=== PATIENT | female | born 1995 | race Caucasian/White ===

== ENCOUNTER 2019-07-31 16:24 | Emergency (ER) | payer BC, MEDICAID ==
--- NOTE | 2019-07-31 16:52 | EDM.PDOC ---
ED HPI GENERAL MEDICAL PROBLEM - General Chief Complaint: Genitourinary Problem Stated Complaint: possible bladder infection Time Seen by Provider: 07/31/19 16:31 Source of Information: Reports: Patient History Limitations: Reports: No Limitations - History of Present Illness INITIAL COMMENTS - FREE TEXT/NARRATIVE: Since reporting a 2 day history of frequency, urgency of urination. No fever, nausea or vaginal symptoms. Last menstrual period 07/23/2019. Sexually active on Depo-Provera. Type I diabetic on insulin pump. Sugars running in the 200s, previous to this in the 100s although she states her control is not ideal and often runs in the 200s. Bilateral Flank Pain Score (Numeric/FACES): 8 - Related Data Allergies Allergy/AdvReac Type Severity Reaction Status Date / Time amoxicillin Allergy Hives Verified 07/31/19 16:48 azithromycin [From Zithromax] Allergy Hives Verified 07/31/19 16:48 ceftriaxone sodium Allergy Hives Verified 07/31/19 16:48 [From Rocephin] cephalexin Allergy Hives Verified 07/31/19 16:48 clarithromycin [From Biaxin] Allergy Hives Verified 07/31/19 16:49 Home Meds: Home Meds Acetaminophn/Pyril Mal/Caffein [Midol Caplet] 11/15/15 [History] QUEtiapine Fumarate [Seroquel Xr] 150 mg PO BEDTIME 11/15/15 [History] medroxyPROGESTERone [Depo-Provera Contraceptive] 150 mg IM ONETIME 11/15/15 [ History] Glucagon,Human Recombinant [Glucagon Emergency Kit] 1 mg IJ ASDIRECTED PRN #1 kit 11/18/15 [Rx] Ondansetron [Zofran ODT] 4 mg PO Q8H PRN #30 tab.dis 11/18/15 [Rx] FLUoxetine HCl [Prozac] 40 mg PO DAILY 07/31/19 [History] Nitrofurantoin Monohyd/M-Cryst [Macrobid 100 mg Capsule] 1 cap PO BID #20 capsule 07/31/19 [Rx] Nitrofurantoin Monohyd/M-Cryst [Macrobid 100 mg Capsule] 1 cap PO BID #20 capsule 07/31/19 [Rx] Past Medical History Respiratory History: Reports: Asthma Genitourinary History: Reports: UTI, Recurrent - Infectious Disease History Infectious Disease History: Reports: Chicken Pox, Influenza - Past Surgical History HEENT Surgical History: Reports: Tonsillectomy Respiratory Surgical History: Reports: None Female Surgical History: Reports: None Social & Family History - Family History HEENT: Reports: Impaired Vision Cardiac: Reports: Hypertension Respiratory: Reports: Asthma Psychiatric: Reports: Anxiety, Depression Endocrine/Metabolic: Reports: Diabetes, Type I Oncologic: Reports: Lymphoma ED ROS GENERAL - Review of Systems Review Of Systems: Comprehensive ROS is negative, except as noted in HPI. ED EXAM, RENAL/ - Physical Exam Exam: See Below Exam Limited By: No Limitations General Appearance: Alert, No Apparent Distress Ears: Normal External Exam Nose: Normal Inspection Throat/Mouth: Normal Inspection Head: Atraumatic, Normocephalic Neck: Normal Inspection Respiratory/Chest: No Respiratory Distress, Lungs Clear, Normal Breath Sounds Cardiovascular: Normal Peripheral Pulses, Regular Rate, Rhythm GI/Abdominal: Soft Back Exam: No: CVA Tenderness (L), CVA Tenderness (R) Neurological: Alert, Oriented Psychiatric: Normal Affect, Normal Mood Skin Exam: Warm, Dry, Intact, Normal Color, No Rash Lymphatic: No Adenopathy Course - Vital Signs Last Recorded V/S: Last Vital Signs Temp 37.1 C 07/31/19 16:51 Pulse 114 H 07/31/19 16:51 Resp 18 07/31/19 16:51 BP 124/83 07/31/19 16:51 Pulse Ox 95 07/31/19 16:51 - Orders/Labs/Meds Orders: Active Orders 24 hr Category Date Time Status UA RFX ALYSSA AND CULT IF INDIC [URIN] Stat Lab 07/31/19 16:47 Ordered Labs: Laboratory Tests 07/31/19 Range/Units 17:00 Urine Color YELLOW Urine Appearance SLT CLOUDY Urine pH 6.0 (5.0-8.0) Ur Specific Mosby 1.010 (1.001-1.035) Urine Protein 30 H (NEGATIVE) mg/dL Urine Glucose (UA) >=1000 (NEGATIVE) mg/dL Urine Ketones NEGATIVE (NEGATIVE) mg/dL Urine Occult Blood LARGE H (NEGATIVE) Urine Nitrite NEGATIVE (NEGATIVE) Urine Bilirubin NEGATIVE (NEGATIVE) Urine Urobilinogen 0.2 (<2.0) EU/dL Ur Leukocyte Esterase MODERATE H (NEGATIVE) Departure - Departure Time of Disposition: 17:33 Disposition: Home, Self-Care 01 Clinical Impression: UTI, Urinary tract infectious disease - Discharge Information Referrals: PCP,None [Primary Care Provider] - [facility] [Outside] [facility] [Outside] Forms: ED Department Discharge Additional Instructions: The following information is given to patients seen in the emergency department who are being discharged to home. This information is to outline your options for follow-up care. We provide all patients seen in our emergency department with a follow-up referral. The need for follow-up, as well as the timing and circumstances, are variable depending upon the specifics of your emergency department visit. If you don't have a primary care physician on staff, we will provide you with a referral. We always advise you to contact your personal physician following an emergency department visit to inform them of the circumstance of the visit and for follow-up with them and/or the need for any referrals to a consulting specialist. The emergency department will also refer you to a specialist when appropriate. This referral assures that you have the opportunity for follow-up care with a specialist. All of these measure are taken in an effort to provide you with optimal care, which includes your follow-up. Under all circumstances we always encourage you to contact your private physician who remains a resource for coordinating your care. When calling for follow-up care, please make the office aware that this follow-up is from your recent emergency room visit. If for any reason you are refused follow-up, please contact the [facility] Emergency Department at and asked to speak to the emergency department charge nurse. 1. Take your antibiotic twice daily starting as soon as you pick it up 2. Adjust your monitoring and insulin pump for tighter control--you are spilling quite a bit of glucose and your urine 3. Drink plenty of fluids 4. Follow up in primary care. Return promptly for fevers, elevated heart rate , new or worsening symptoms Sepsis Event Note - Focused Exam Vital Signs: Vital Signs Temp Pulse Resp BP Pulse Ox 07/31/19 16:51 37.1 C 114 H 18 124/83 95 Date Exam was Performed: 07/31/19 Time Exam was Performed: 17:26 - My Orders Last 24 Hours: My Active Orders 07/31/19 16:47 UA RFX ALYSSA AND CULT IF INDIC [URIN] Stat - Assessment/Plan Last 24 Hours: My Active Orders 07/31/19 16:47 UA RFX ALYSSA AND CULT IF INDIC [URIN] Stat
[2019-07-31 17:53] VITALS: BP 123/83; PULSE 104
== END 2019-07-31 17:50 | disposition home or self-care (01) ==
LOC: MW.ED 16:24
DX: N39.0 Urinary tract infection, site not specified (principal); J45.909 Unspecified asthma, uncomplicated; E10.9 Type 1 diabetes mellitus without complications; Z88.0 Allergy status to penicillin; Z88.1 Allergy status to other antibiotic agents
CPT/HCPCS: 81001; 87086; 87088; 87186; 99283

== ENCOUNTER 2019-11-04 17:27 | Emergency (ER) | payer MEDICAID ==
[2019-11-04 17:50] VITALS: BP 124/85; PULSE 104
--- NOTE | 2019-11-04 17:56 | EDM.PDOC ---
ED HPI GENERAL MEDICAL PROBLEM - General Chief Complaint: Lower Extremity Injury/Pain Stated Complaint: FOOT INJURY Time Seen by Provider: 11/04/19 17:28 Source of Information: Reports: Patient History Limitations: Reports: No Limitations - History of Present Illness INITIAL COMMENTS - FREE TEXT/NARRATIVE: HISTORY AND PHYSICAL: History of present illness: Patient is a 24-year-old female who presents to the emergency room with complaints of foot pain to the solar surface along the arch. She states a few days ago she started to notice this pain, increased with weightbearing and ambulation. She does not recall any particular injury or twisting of her foot. She has been outside walking her dog and believes maybe she "stepped wrong". Denies any previous orthopedic injuries. She has a type I diabetic, states that her blood sugars have been normal. She denies any systemic concerns or complaints at this time. Review of systems: As per history of present illness and below otherwise all systems reviewed and negative. Past medical history: As per history of present illness and as reviewed below otherwise noncontributory. Surgical history: As per history of present illness and as reviewed below otherwise noncontributory. Social history: See social history for further information Family history: As per history of present illness and as reviewed below otherwise noncontributory. Physical exam: General: Well developed and well nourished 24-year-old female. Alert and oriented. Nontoxic-appearing and in no acute distress. HEENT: Atraumatic, normocephalic, pupils equal and reactive bilaterally, negative for conjunctival pallor or scleral icterus, mucous membranes moist, TMs normal bilaterally, throat clear, neck supple, nontender, trachea midline. No drooling or trismus noted. No meningeal signs. No hot potato voice noted. Lungs: Clear to auscultation, breath sounds equal bilaterally, chest nontender. Heart: S1S2, regular rate and rhythm without overt murmur Abdomen: Soft, nondistended, nontender. Skin: Intact, warm, dry. No lesions or rashes noted. Extremities: Pain with palpation of the left arch into the distal heel. She moves all extremities per self without difficulty or deficits, negative for cords or calf pain. Strong pedal and pretibial pulse. Cap refill less than 3 seconds. Neurovascular unremarkable. Neuro: Awake, alert, oriented. Cranial nerves II through XII unremarkable. Cerebellum unremarkable. Motor and sensory unremarkable throughout. Exam nonfocal. Notes: Straight shows no acute findings. We discussed following up with podiatry. Would like her to use a Jacob wrap and crutches for compression and to be nonweightbearing over the next 3 to 5 days. I am suspecting a plantar fasciitis left foot. We discussed follow-up and supportive care measures were reviewed and discussed. Voices understanding and is agreeable to plan of care. Denies any further questions or concerns at this time. Diagnostics: X-ray Therapeutics: Jacob wrap, crutches Prescription: Diclofenac Impression: Acute foot pain, left Suspected plantar fasciitis, left Plan: 1. Rest, ice, elevate the affected extremity. Please wear the jacob wrap and use crutches over next 3-5 days. Make sure you are wearing supportive shoes with good arch support. Gentle stretching (tendoachilles/plantar fascia stretches) 3 times daily with 10 reps each stretch. 2. Tylenol and/or Ibuprofen as needed for pain management. 3. Follow up with the Rug [facility]pper or Orthopedic provider as we discussed. Return to the ED as needed and as discussed. Definitive disposition and diagnosis as appropriate pending reevaluation and review of above. left foot Pain Score (Numeric/FACES): 6 - Related Data Allergies Allergy/AdvReac Type Severity Reaction Status Date / Time amoxicillin Allergy Hives Verified 11/04/19 17:50 azithromycin [From Zithromax] Allergy Hives Verified 11/04/19 17:50 ceftriaxone sodium Allergy Hives Verified 11/04/19 17:50 [From Rocephin] cephalexin Allergy Hives Verified 11/04/19 17:50 clarithromycin [From Biaxin] Allergy Hives Verified 11/04/19 17:50 Home Meds: Home Meds Acetaminophn/Pyril Mal/Caffein [Midol Caplet] 11/15/15 [History] QUEtiapine Fumarate [Seroquel Xr] 150 mg PO BEDTIME 11/15/15 [History] Glucagon,Human Recombinant [Glucagon Emergency Kit] 1 mg IJ ASDIRECTED PRN #1 kit 11/18/15 [Rx] Ondansetron [Zofran ODT] 4 mg PO Q8H PRN #30 tab.dis 11/18/15 [Rx] FLUoxetine HCl [Prozac] 40 mg PO DAILY 07/31/19 [History] Diclofenac Sodium [Voltaren] 75 mg PO BIDMEALS PRN #30 tab.cr 11/04/19 [Rx] Insulin Glarg,Human.Rec.Analog [Lantus] 28 unit SQ DAILY 11/04/19 [History] Insuln Asp Prot/Insulin Aspart [NovoLOG Mix 70-30] 300 unit .XX DAILY 11/04/19 [ History] Zolpidem Tartrate [Ambien] 5 mg PO 11/04/19 [History] Past Medical History Respiratory History: Reports: Asthma Genitourinary History: Reports: UTI, Recurrent - Infectious Disease History Infectious Disease History: Reports: Chicken Pox, Influenza - Past Surgical History HEENT Surgical History: Reports: Tonsillectomy Respiratory Surgical History: Reports: None Female Surgical History: Reports: None Social & Family History - Family History Family Medical History: Noncontributory HEENT: Reports: Impaired Vision Cardiac: Reports: Hypertension Respiratory: Reports: Asthma Psychiatric: Reports: Anxiety, Depression Endocrine/Metabolic: Reports: Diabetes, Type I Oncologic: Reports: Lymphoma - Caffeine Use Caffeine Use: Reports: None Review of Systems - Review of Systems Review Of Systems: Comprehensive ROS is negative, except as noted in HPI. ED EXAM, GENERAL - Physical Exam Exam: See Below (See dictation) Course - Vital Signs Last Recorded V/S: Last Vital Signs Temp 96.1 F L 11/04/19 17:47 Pulse 104 H 11/04/19 17:47 Resp 16 11/04/19 17:47 BP 124/85 11/04/19 17:47 Pulse Ox 96 11/04/19 17:47 - Orders/Labs/Meds Orders: Active Orders 24 hr Category Date Time Status DME for Discharge [COMM] Stat Oth 11/04/19 18:04 Ordered Departure - Departure Time of Disposition: 18:15 Disposition: Home, Self-Care 01 Clinical Impression: Acute pain of left foot, Plantar fasciitis of left foot - Discharge Information Prescriptions: Diclofenac Sodium [Voltaren] 75 mg PO BIDMEALS PRN #30 tab.cr PRN Reason: Pain Instructions: Plantar Fasciitis Referrals: PCP,None [Primary Care Provider] - Forms: ED Department Discharge Additional Instructions: The following information is given to patients seen in the emergency department who are being discharged to home. This information is to outline your options for follow-up care. We provide all patients seen in our emergency department with a follow-up referral. The need for follow-up, as well as the timing and circumstances, are variable depending upon the specifics of your emergency department visit. If you don't have a primary care physician on staff, we will provide you with a referral. We always advise you to contact your personal physician following an emergency department visit to inform them of the circumstance of the visit and for follow-up with them and/or the need for any referrals to a consulting specialist. The emergency department will also refer you to a specialist when appropriate. This referral assures that you have the opportunity for follow-up care with a specialist. All of these measure are taken in an effort to provide you with optimal care, which includes your follow-up. Under all circumstances we always encourage you to contact your private physician who remains a resource for coordinating your care. When calling for follow-up care, please make the office aware that this follow-up is from your recent emergency room visit. If for any reason you are refused follow-up, please contact the [facility] Emergency Department at and asked to speak to the emergency department charge nurse. [facility] [address] [place] [id number] [facility] [address] [place] [address] 1. Rest, ice, elevate the affected extremity. Please wear the jacob wrap and use crutches over next 3-5 days. Make sure you are wearing supportive shoes with good arch support. Gentle stretching (tendoachilles/plantar fascia stretches) 3 times daily with 10 reps each stretch. 2. Tylenol and/or Ibuprofen as needed for pain management. 3. Follow up with the Rug Clipper or Orthopedic provider as we discussed. Return to the ED as needed and as discussed. Sepsis Event Note - Focused Exam Vital Signs: Vital Signs Temp Pulse Resp BP Pulse Ox 11/04/19 17:47 96.1 F L 104 H 16 124/85 96 Date Exam was Performed: 11/04/19 Time Exam was Performed: 18:13 - My Orders Last 24 Hours: My Active Orders 11/04/19 18:04 DME for Discharge [COMM] Stat - Assessment/Plan Last 24 Hours: My Active Orders 11/04/19 18:04 DME for Discharge [COMM] Stat
--- NOTE | 2019-11-04 18:09 | CR ---
Left foot: 2 views of the left foot were obtained. Comparison: No previous foot exam is available. Joint spaces are preserved. No focal erosions are seen. No acute fracture or other abnormality is appreciated. Impression: 1. No bony abnormality is appreciated on 2 view left foot exam. Diagnostic code #1 This report was dictated in MDT
== END 2019-11-04 18:36 | disposition home or self-care (01) ==
LOC: MW.ED 17:27
DX: M79.672 Pain in left foot (principal); E10.10 Type 1 diabetes mellitus with ketoacidosis without coma; Z88.1 Allergy status to other antibiotic agents; Z88.8 Allergy status to other drugs, medicaments and biological substances; Z79.4 Long term (current) use of insulin
CPT/HCPCS: 73620-26-LT; 73620-LT; 99283; 99283-25